=== PATIENT | male | born 1950 | race Caucasian/White ===

== ENCOUNTER 2020-08-12 20:28 | Emergency (ER) | payer SELFPAY ==
[~2020-08-12] VITALS: Ht 182.9 cm; Wt 81.6 kg
[2020-08-12] MEDS ORDERED: NEOMY/BACITRA/POLYMYXIN B OINT UD PACKET TP ONE ×2 (20:45→20:48)
[2020-08-12] MEDS ORDERED: TDAP DIPH,PERTUSS,TET VAC/PF 0.5 ML DISP.SYRIN IM ONE ×2 (20:45→20:46)
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
--- NOTE | 2020-08-12 21:10 | NUR ---
Patient discharged to home in stable condition. Written and verbal after care instructions given. Patient verbalizes understanding of instructions. Stressed follow up or return to ER for worsening s/s. Patient ambulated with steady gait. A/Ox4, all belongings returned to patient prior to departure.
[2020-08-12 21:12] VITALS: BP 113/67
== END 2020-08-12 21:12 | disposition home or self-care (01) ==
LOC: ER 20:28
DX: S40.812A Abrasion of left upper arm, initial encounter (principal); S60.512A Abrasion of left hand, initial encounter; S70.312A Abrasion, left thigh, initial encounter; V19.3XXA Pedal cyclist (driver) (passenger) injured in unspecified nontraffic accident, initial encounter; Y93.55 Activity, bike riding; Y92.89 Other specified places as the place of occurrence of the external cause; Y99.8 Other external cause status
CPT/HCPCS: 90715; A4663